=== PATIENT | female | born 1995 | race Caucasian/White ===

== ENCOUNTER 2025-05-25 19:13 | Emergency (ER) | payer MEDICAID ==
[~2025-05-25] VITALS: Ht 180.3 cm; Wt 113.4 kg
[2025-05-25 19:58] VITALS: TEMP 98.5
[2025-05-25 20:58] LABS: CALCIUM, SERUM 9.0 mg/dL (8.5-10.1); CREATININE 0.7 mg/dL (0.6-1.3); SODIUM SERUM 136.0 mmol/L (136-145); UREA NITROGEN, BLOOD 13.0 mg/dL (7-18)
[2025-05-25 21:01] LABS: PLATELET COUNT (AUTO) 234 K/uL (150-450); RED BLOOD CELL COUNT(AUTO) 4.08 MIL/uL (4.0-5.2); RED CELL DISTRIBUTION WIDTH 12.6 % (11.5-15.0); WHITE BLOOD COUNT (AUTO) 8.1 K/uL (4.3-11.0)
[2025-05-25 21:06] LABS: APPEARANCE,URINE SLIGHTLY CLOUDY (CLEAR); BLOOD, URINE 3+ Ery/uL (NEGATIVE); LEUKOCYTE ESTERASE ,URINE NEGATIVE (NEGATIVE); NITRITE, URINE NEGATIVE (NEGATIVE); UGLUCOSE NEGATIVE (NEGATIVE)
[2025-05-25 21:09] LABS: PREGNANCY TEST SERUM QUAN 0.0 mIU/mL (0-6)
[2025-05-25 21:40] LABS: ADD URINE CULTURE NO; SQUAMOUS EPITHELIAL CELL,UR Few /HPF (None Seen)
[2025-05-25] MEDS ORDERED: IOHEXOL-300 100 ML VIAL IV ONE (22:00)
[2025-05-25] MEDS ORDERED: IV NS 0.9% 250 ML IV ONE (22:00)
[2025-05-25] MEDS ORDERED: CT SWABBABLE VALVE TRANS SET 1 EA INFUS.SET MC ONE (22:00)
[2025-05-25] MEDS ORDERED: MEDR10TA10 PO (22:32)
[2025-05-26 00:27] VITALS: BP 95/72; O2SAT 96
== END 2025-05-26 00:28 | disposition home or self-care (01) ==
LOC: ER 19:21
DX: N93.9 Abnormal uterine and vaginal bleeding, unspecified (principal); R10.20 Pelvic and perineal pain unspecified side; Z79.3 Long term (current) use of hormonal contraceptives
CPT/HCPCS: 99285; 74177; 76856; 85025; 80048; 81001; 36415; 84702; J7050; Q9967